=== PATIENT | female | born 1990 ===

== ENCOUNTER 2019-08-17 00:15 | Inpatient (IN) ==
[~2019-08-17 00:15] MED LIST: *HR* FentaNYL (PF) 100 MCG/2 ML VIAL IVP PRN; Famotidine 20 MG/2 ML VIAL IVP PRN; Lidocaine 1% 20 ML MDV INFILT PRN; Metoclopramide 10 MG/2 ML VIAL IVP PRN; Naloxone 0.4 MG/ML INJ IVP PRN; Ondansetron 4 MG/2 ML VIAL IVP PRN; Ringers Solution, Lactated 1,000 ML IVC SCH
[2019-08-17 00:52] LABS: Basophils % 0.2 %; Eosinophils # 0.1 K/mcL (0.0-0.6); Eosinophils % 0.5 %; Hematocrit 37.2 % (35.3-44.9); Hemoglobin 12.3 g/dL (11.5-15.4); Immature Granulocytes % 0.6 % (0-4); Lymphocytes # 2.5 K/mcL (0.6-4.6); Lymphocytes % 20.2 %; Mean Corpuscular HGB Conc 33.1 g/dL (31.6-35.5); Mean Corpuscular Hemoglobin 26.9 pg (28.0-33.3); Mean Corpuscular Volume 81.2 fL (83.0-100.0); Mean Platelet Volume 11.5 fL (9.4-12.4); Monocytes % 8.1 %; Neutrophils # 8.8 K/mcL (1.6-8.9); Platelet Count 210 K/mcL (140-400); Red Blood Count 4.58 M/mcL (3.82-4.97); Red Cell Distribution Width 16.1 % (11.5-14.5); Segmented Neutrophils % 70.4 %; White Blood Count 12.5 K/mcL (4.3-11.1)
[2019-08-17 00:53] LABS: Amphetamine Screen,Urine Negative ng/mL (Cutoff=1000); Barbiturate Screen,Urine Negative ng/mL (Cutoff=200); Benzodiazepines Screen,Urine Negative ng/mL (Cutoff=200); Cannabinoid Screen,Urine Negative ng/mL (Cutoff = 50); Cocaine Screen,Urine Negative ng/mL (Cutoff= 300); Opiate Screen,Urine Negative ng/mL (Cutoff=300); Phencyclidine Screen,Urine Negative ng/mL (Cutoff=25)
[2019-08-17] MEDS ORDERED: Famotidine 20 MG/2 ML VIAL IVP ONE (01:05)
[2019-08-17] MEDS ORDERED: *HR* FentaNYL (PF) 100 MCG/2 ML VIAL EP ONE (01:23)
[2019-08-17] MEDS ORDERED: EPHEDrine 50 MG/ML VIAL IVP PRN (01:23)
[2019-08-17] MEDS ORDERED: *HR* FentaNYL (PF) 100 MCG/2 ML VIAL ONE (01:25)
[2019-08-17] MEDS ORDERED: Epidural Premix (fent/bupiv) 110 ML EP ONE (01:27)
[2019-08-17] MEDS ORDERED: Epidural Premix (fent/bupiv) 110 ML EP SCH (01:30)
[2019-08-17] MEDS ORDERED: *HR* Propofol 200 MG/20 ML VIAL IVP ONE (03:26)
[2019-08-17] MEDS ORDERED: Chloroprocaine/PF 20 ML VIAL INFILT ONE (03:26)
[2019-08-17] MEDS ORDERED: EPHEDrine 50 MG/ML VIAL ONE (03:27)
[2019-08-17] MEDS ORDERED: *HR* Oxytocin 10 UNIT/ML VIAL IM ONE ×2 (03:36→04:25)
[2019-08-17] MEDS ORDERED: *HR* Morphine Sulfate/PF 10 MG/10 ML AMPUL ONE (03:36)
[2019-08-17] MEDS ORDERED: Ondansetron 4 MG/2 ML VIAL ONE ×2 (03:44→04:27)
[2019-08-17] MEDS ORDERED: Dexamethasone 4 MG/ML VIAL ONE (03:44)
[2019-08-17] MEDS ORDERED: *HR* HYDROmorphone PF 0.5 MG/0.5 ML SYRINGE IVP PRN (03:56)
[2019-08-17] MEDS ORDERED: Acetaminophen IV 1,000 MG/100 ML INFUS..BTL IVPB ONE (03:56)
[2019-08-17] MEDS ORDERED: Ondansetron 4 MG/2 ML VIAL IVP PRN ×2 (03:56→06:59)
[2019-08-17] MEDS ORDERED: *HR* Promethazine 25 MG/ML VIAL IVP PRN (03:56)
[2019-08-17] MEDS ORDERED: Ringers Solution, Lactated 1,000 ML ONE (04:25)
[2019-08-17] MEDS ORDERED: *HR* OxyCODONE/APAP 10/325 TABLET PO PRN (06:59)
[2019-08-17] MEDS ORDERED: Ringers Solution, Lactated 1,000 ML IVC SCH (06:59)
[2019-08-17] MEDS ORDERED: *HR* OxyCODONE/APAP 5/325 TABLET PO PRN (06:59)
[2019-08-17] MEDS ORDERED: Metoclopramide 10 MG/2 ML VIAL IVP PRN (06:59)
[2019-08-17] MEDS ORDERED: Sennosides 8.6 MG TABLET PO PRN (06:59)
[2019-08-17] MEDS ORDERED: *HR* OxyCODONE Immed Rel 5 MG TABLET PO PRN (06:59)
[2019-08-17] MEDS ORDERED: Naloxone 0.4 MG/ML INJ IVP PRN (06:59)
[2019-08-17] MEDS ORDERED: Simethicone 80 MG TAB.CHEW PO PRN (06:59)
[2019-08-17] MEDS ORDERED: Prenatal Vit/FA 1 EACH TABLET PO SCH (09:00)
[2019-08-17] MEDS: Oxytocin 20 units/ LR 1000 mL 20 UNIT/1,000 ML BAG IVC SCH ×2 (09:30→17:39)
[2019-08-17] MEDS: metroNIDAZOLE 500 MG TABLET PO SCH ×3 (09:30→19:55)
[2019-08-17] MEDS: Ibuprofen 600 MG TABLET PO PRN ×2 (11:00→19:55)
[2019-08-17] MEDS: ceFAZolin 2,000 MG in 0.9 % Sodium Chloride 100 ML IVPB SCH (12:04)
[2019-08-18] MEDS: ceFAZolin 2,000 MG in 0.9 % Sodium Chloride 100 ML IVPB SCH ×2 (00:01→07:55)
[2019-08-18 04:19] LABS: Basophils % 0.3 %; Eosinophils % 0.3 %; Hematocrit 32.2 % (35.3-44.9); Hemoglobin 10.3 g/dL (11.5-15.4); Immature Granulocytes % 0.5 % (0-4); Lymphocytes # 2.7 K/mcL (0.6-4.6); Lymphocytes % 19.7 %; Mean Corpuscular Hemoglobin 26.5 pg (28.0-33.3); Mean Platelet Volume 11.7 fL (9.4-12.4); Monocytes # 1.3 K/mcL (0.0-1.3); Monocytes % 9.9 %; Neutrophils # 9.3 K/mcL (1.6-8.9); Platelet Count 182 K/mcL (140-400); Red Blood Count 3.88 M/mcL (3.82-4.97); Red Cell Distribution Width 16.5 % (11.5-14.5); Segmented Neutrophils % 69.3 %; White Blood Count 13.5 K/mcL (4.3-11.1)
[2019-08-18] MEDS: Ibuprofen 600 MG TABLET PO PRN (06:32)
[2019-08-18] MEDS: metroNIDAZOLE 500 MG TABLET PO SCH (07:55)
[2019-08-18 11:46] VITALS: BP 135/86
== END 2019-08-18 12:05 | disposition home or self-care (01) | DRG 787 ==
LOC: 1NENULAB → 1NENUOBS 06:59
PROVIDERS: ADMIT Obstetrics & Gynecology; ATTEND Obstetrics & Gynecology